=== PATIENT | male | born 1950 | race Two or more races ===

== ENCOUNTER 2017-11-25 18:32 | Observation (INO) | payer MEDICARE, OTHER ==
--- NOTE | 2017-11-25 18:55 | RADIOLOGY REPORT (SQ) ---
EXAM DESCRIPTION: CHEST SINGLE VIEW COMPLETED DATE/TIME: 11/25/2017 6:49 pm REASON FOR STUDY: stroke-like symptoms COMPARISON: None. EXAM PARAMETERS: NUMBER OF VIEWS: One view. TECHNIQUE: Single frontal radiographic view of the chest acquired. RADIATION DOSE: NA LIMITATIONS: None. FINDINGS: LUNGS AND PLEURA: No opacities, masses or pneumothorax. No pleural effusion. MEDIASTINUM AND HILAR STRUCTURES: No masses. Contour normal. HEART AND VASCULAR STRUCTURES: Heart normal in size. Normal vasculature. BONES: No acute findings. HARDWARE: None in the chest. OTHER: No other significant finding. IMPRESSION: NO ACUTE RADIOGRAPHIC FINDING IN THE CHEST. TECHNICAL DOCUMENTATION: JOB ID: [id number] [employer]- All Rights Reserved Reading location - IP/workstation name: [email or web address]
--- NOTE | 2017-11-25 18:55 | RADIOLOGY REPORT (SQ) ---
EXAM DESCRIPTION: CT HEAD WITHOUT COMPLETED DATE/TIME: 11/25/2017 6:45 pm REASON FOR STUDY: stroke-like symptoms COMPARISON: None. TECHNIQUE: Axial images acquired through the brain without intravenous contrast. Images reviewed wi th bone, brain and subdural windows. Additional sagittal and coronal reconstructions were generated. Images stored on PACS. All CT scanners at this facility use dose modulation, iterative reconstruction, and/or weight based d osing when appropriate to reduce radiation dose to as low as reasonably achievable (ALARA). [facility]: Dose Right [facility]: CareDose [facility]: Dose Right [facility]: Teradose 4D [facility]: [employer] RADIATION DOSE: CT Rad equipment meets quality standard of care and radiation dose reduction techniq ues were employed. CTDIvol: 53.2 mGy. DLP: 1044 mGy-cm. mGy. LIMITATIONS: None. FINDINGS: VENTRICLES: Normal size and contour. CEREBRUM: No masses. No hemorrhage. No midline shift. No evidence for acute infarction. Normal gra y/white matter differentiation. No areas of low density in the white matter. CEREBELLUM: There is an area of encephalomalacia in the left lobe of the cerebellum. EXTRAAXIAL SPACES: No fluid collections. No masses. ORBITS AND GLOBE: No intra- or extraconal masses. Normal contour of globe without masses. CALVARIUM: No fracture. PARANASAL SINUSES: No fluid or mucosal thickening. SOFT TISSUES: No mass or hematoma. OTHER: No other significant finding. IMPRESSION: No acute intracranial imaging findings. There is what appears to be an old left cerebel lar infarction. EVIDENCE OF ACUTE STROKE: NO. COMMENT: Quality ID # 436: Final reports with documentation of one or more dose reduction techniques (e.g., Automated exposure control, adjustment of the mA and/or kV according to patient size, use of iterative reconstruction technique) TECHNICAL DOCUMENTATION: JOB ID: [id number] [employer]- All Rights Reserved Reading location - IP/workstation name: [email or web address]
[2017-11-25] MEDS ORDERED: ONDANSETRON HCL INJ/PF 4 MG/2 ML SDV IV ONE (19:09)
[2017-11-25] MEDS ORDERED: ASPIRIN 325 MG TABLET PO ONE (19:09)
[2017-11-25] MEDS ORDERED: MECLIZINE HCL 25 MG TABLET PO ONE (19:09)
[2017-11-25 19:10] LABS: INTERNATIONAL RATION (INR) 0.92; PROTHROMBIN TIME 12.8 SEC (11.4-15.4)
[2017-11-25 19:11] LABS: PARTIAL THROMBOPLASTIN TIME 31.8 SEC (23.5-35.8)
[2017-11-25 19:13] LABS: ABSOLUTE BASOPHILS # (AUTO) 0.1 10^3/uL (0.0-0.2); ABSOLUTE EOSINOPHILS # (AUTO) 0.4 10^3/uL (0.0-0.6); ABSOLUTE MONOCYTES (AUTO) 0.9 10^3/uL (0.1-1.4); ABSOLUTE NEUT (AUTO) 6.5 10^3/uL (1.7-8.2); BASOPHILS % (AUTO) 0.7 % (0-2); EOSINOPHILS % (AUTO) 3.8 % (0-6); HEMATOCRIT 41.1 % (37.9-51.0); LYMPHOCYTES % (AUTO) 27.6 % (13-45); MEAN CORPUSCULAR HEMOGLOBIN 30.2 pg (27.0-33.4); MEAN CORPUSCULAR HGB CONC 34.1 g/dL (32.0-36.0); MEAN CORPUSCULAR VOLUME 89 fl (80-97); PLATELET COUNT 181 10^3/uL (150-450); RED BLOOD COUNT 4.64 10^6/uL (4.35-5.55); RED CELL DISTRIBUTION WIDTH 12.9 % (11.5-14.0); SEGMENTED NEUTROPHILS % (AUTO) 59.9 % (42-78); TOTAL CELLS COUNTED % (AUTO) 100 %; WHITE BLOOD COUNT 10.8 10^3/uL (4.0-10.5)
[2017-11-25 19:30] LABS: ALANINE AMINOTRANSFERASE 118 U/L (21-72); ALBUMIN 4.8 g/dL (3.5-5.0); ALKALINE PHOSPHATASE 89 U/L (38-126); ANION GAP 15 (5-19); ASPARTATE AMINO TRANSFERASE 84 U/L (17-59); BILIRUBIN,DIRECT 0.3 mg/dL (0.0-0.4); BILIRUBIN,TOTAL 0.4 mg/dL (0.2-1.3); BLOOD UREA NITROGEN 24 mg/dL (7-20); CALCIUM 10.2 mg/dL (8.4-10.2); CARBON DIOXIDE 26 mmol/L (22-30); CHLORIDE 104 mmol/L (98-107); CREATINE KINASE 127 U/L (55-170); GLUCOSE 162 mg/dL (75-110); SODIUM 145.2 mmol/L (137-145); TOTAL PROTEIN 7.8 g/dL (6.3-8.2)
--- NOTE | 2017-11-25 19:38 | RADIOLOGY REPORT (SQ) ---
EXAM DESCRIPTION: CTA HEAD COMPLETED DATE/TIME: 11/25/2017 7:27 pm REASON FOR STUDY: Sudden onset dizziness and vomiting, prior CVA COMPARISON: None. TECHNIQUE: Post IV contrast scanning, thin section axial imaging through the brain to evaluate the a rterial structures. Source and MIP images are saved and reviewed on PACS. Advanced 3D imaging as volume-rendering, MIPs, SSD performed? yes All CT scanners at this facility use dose modulation, iterative reconstruction, and/or weight based d osing when appropriate to reduce radiation dose to as low as reasonably achievable (ALARA). [facility]: Dose Right [facility]: CareDose [facility]: Dose Right [facility]: Teradose 4D [facility]: [employer] CONTRAST TYPE AND DOSE: contrast/concentration: Isovue 350.00 mg/ml; Total Contrast Delivered: 70.0 ml; Total Saline Delivered: 56.0 ml RENAL FUNCTION: Deferred by the emergency department LIMITATIONS: None. FINDINGS: [place]: The anterior, middle, posterior cerebral arteries are all patent. No ev idence of aneurysm or focal stenosis. POSTERIOR CIRCULATION: The distal vertebral arteries are patent as is the basilar artery. No aneurysm . BRAIN: No gross enhancing lesions as visualized. BONES: Intact as visualized. SINUSES: No fluid or mucosal thickening. OTHER: No other significant finding. IMPRESSION: NO CTA EVIDENCE OF STENOSIS OR ANEURYSM OF THE [place]. TECHNICAL DOCUMENTATION: JOB ID: [id number] Quality ID # [id number]: Final reports with documentation of one or more dose reduction techniques (e.g., Au tomated exposure control, adjustment of the mA and/or kV according to patient size, use of iterative reconstruction technique) 2010 [employer]- All Rights Reserved Reading location - IP/workstation name: [email or web address]
[2017-11-25 19:40] LABS: CREATINE KINASE MB 0.35 ng/mL (<4.55); TROPONIN I < 0.012 ng/mL
--- NOTE | 2017-11-25 19:42 | RADIOLOGY REPORT (SQ) ---
EXAM DESCRIPTION: CTA NECK COMPLETED DATE/TIME: 11/25/2017 7:27 pm REASON FOR STUDY: Sudden onset dizziness and vomiting, prior CVA COMPARISON: None. TECHNIQUE: Axial dynamic scanning technique with dynamic contrast enhancement through the extra-aircraft inspection record clerk nial carotid and vertebral arteries. Multiplanar reconstruction. 3-D MIPS and Volume-rendered imag es acquired at the workstation and saved to PACS. Images are reviewed in soft tissue, bone, lung w indows. All CT scanners at this facility use dose modulation, iterative reconstruction, and/or weight based d osing when appropriate to reduce radiation dose to as low as reasonably achievable (ALARA). [facility]: Dose Right [facility]: CareDose [facility]: Dose Right [facility]: Teradose 4D [facility]: [employer] CONTRAST TYPE AND DOSE: 70.3 Omnipaque 350- low osmolar. RENAL FUNCTION: Defewrred by the emergency department LIMITATIONS: None. FINDINGS: AORTIC ARCH: Normal three-vessel origin. Bilateral subclavian arteries are patent. No d issection. RIGHT CAROTIDS: Patent common, internal and external carotid arteries without suggestion of significa nt stenosis or irregular plaque. No dissection. RIGHT VERTEBRAL: Dominant. No dissection. LEFT CAROTIDS: Patent common, internal and external carotid arteries without suggestion of significan t stenosis or irregular plaque. Mild calcified plaque. No dissection. LEFT VERTEBRAL: Hypoplastic left vertebral. Patent. OTHER: No other significant finding. OTHER: 3-D reconstructions confirm findings. IMPRESSION: NORMAL CTA OF THE EXTRA-CRANIAL CAROTID AND VERTEBRAL ARTERIES. COMMENT: Quality ID #[id number]: Measurements of distal internal carotid diameter were used as the denomina tor for stenosis measurement. TECHNICAL DOCUMENTATION: JOB ID: [id number] Quality ID # [id number]: Final reports with documentation of one or more dose reduction techniques (e.g., Au tomated exposure control, adjustment of the mA and/or kV according to patient size, use of iterative reconstruction technique) 2010 [id number]- All Rights Reserved Reading location - IP/workstation name: [email or web address]
--- NOTE | 2017-11-25 20:13 | ER Document Report ---
ED General - General Chief Complaint: S/S of Possible Stroke Stated Complaint: DIZZINESS,BLOOD PRESSURE ISSUES Time Seen by Provider: 11/25/17 19:00 TRAVEL OUTSIDE OF THE [place] IN LAST 30 DAYS: No - HPI Notes: 67-year-old male with a history of stroke, diabetes, hypertension, high cholesterol presents with sudden onset of dizziness and 2 episodes of vomiting around 4 PM. He was at work seeing patients whenever it occurred. He states he also felt off balance like he was on a ship. He states this is similar to the symptoms he had when he had a cerebellar stroke 10 years ago. He is not on aspirin or Plavix. He has been noncompliant with his diabetes and cholesterol medications. He has not eaten anything all day today and has been putting in long hours at work for the past several days. He denies any headache. No focal weakness or numbness. Patient was brought in as a stroke alert. - Related Data Allergies/Adverse Reactions: No Known Allergies Allergy (Verified 11/25/17 18:58) Past Medical History - Social History Smoking Status: Unknown if Ever Smoked Family History: Reviewed & Not Pertinent Patient has suicidal ideation: No Patient has homicidal ideation: No - Past Medical History Cardiac Medical History: Reports: Hx Hypertension Endocrine Medical History: Reports: Hx Diabetes Mellitus Type 2 Renal/ Medical History: Denies: Hx Peritoneal Dialysis Past Surgical History: Reports: Hx Appendectomy, Hx Tonsillectomy Review of Systems - Review of Systems Notes: Constitutional: Negative for fever. HENT: Negative for sore throat. Eyes: Negative for visual changes. Cardiovascular: Negative for chest pain. Respiratory: Negative for shortness of breath. Gastrointestinal: Negative for abdominal pain, or diarrhea. Positive for nausea and vomiting Genitourinary: Negative for dysuria. Musculoskeletal: Negative for back pain. Skin: Negative for rash. Neurological: Negative for headaches, weakness or numbness. Positive for dizziness and ataxia 10 point ROS negative except as marked above and in HPI. Physical Exam - Vital signs Vitals: Pulse Ox 98 11/25/17 18:55 - Notes Notes: PHYSICAL EXAMINATION: GENERAL: Well-appearing, well-nourished and in no acute distress. HEAD: Atraumatic, normocephalic. EYES: Pupils equal round and reactive to light, extraocular movements intact, conjunctiva are normal. ENT: nares patent, oropharynx clear without exudates. Moist mucous membranes. NECK: Normal range of motion, supple without lymphadenopathy LUNGS: Breath sounds clear to auscultation bilaterally and equal. No wheezes rales or rhonchi. HEART: Regular rate and rhythm, no chest wall tenderness ABDOMEN: Soft, nontender, normoactive bowel sounds. No guarding, no rebound. No masses appreciated. EXTREMITIES: Normal range of motion, no pitting or edema. No cyanosis. NEUROLOGICAL: Cranial nerves grossly intact. Normal speech, normal gait. Normal sensory and motor exams. Normal finger to nose, rapid alternating movements, and [id number]. No nystagmus. Dizziness worsens with position change. PSYCH: Normal mood, normal affect. SKIN: Warm, Dry, normal turgor, no rashes or lesions noted. Course - Re-evaluation Re-evalutation: 11/25/17 20:12 Patient called a stroke alert. Initial CT head negative. Discussed TPA. Patient concerned due to prior cerebellar stroke that symptoms could be consistent with new stroke. Patient has no ataxia with walking, no nystagmus, and normal finger to nose, rapid alternating movements, and [id number]. CTA head and neck unremarkable. Using shared decision making with patient, decided against TPA due to rapid improvement and minimal deficit and possible alternate explanation for symptoms. NIH stroke scale 0. Discussed with hospitalist for admission. - Vital Signs Vital signs: Temp Pulse Resp BP Pulse Ox 59 L 20 149/80 H 96 11/25/17 19:26 11/25/17 19:26 11/25/17 19:26 11/25/17 19:26 - Laboratory Result Diagrams: 11/25/17 18:55 11/25/17 18:55 Laboratory results interpreted by me: 11/25/17 11/25/17 11/25/17 18:55 18:55 19:32 WBC 10.8 H Sodium 145.2 H BUN 24 H Creatinine 1.29 H Est GFR (Non-Af Amer) 56 L Glucose 162 H POC Glucose 161 H AST 84 H ALT 118 H Critical Care Note - Critical Care Note Total time excluding time spent on procedures (mins): 45 - Critical care time spent obtaining history from patient or surrogate, discussions with consultants , development of treatment plan with patient or surrogate, evaluation of patient 's response to treatment, examination of patient, ordering and performing treatments and interventions, ordering and review of laboratory studies, re- evaluation of patient's condition, ordering and review of radiographic studies and review of old charts Discharge - Discharge Condition: Fair Disposition: ADMITTED OBSERVATION Admitting Provider: Hospitalist Unit Admitted: [facility]
[2017-11-25] MEDS ORDERED: INSULIN LISPRO 100 UNIT/ML 3 ML VIAL SUBCUT PRN (21:55)
[2017-11-25] MEDS ORDERED: DEXTROSE 50%-WATER 25 GM/50 ML DISP.SYRIN IV PRN ×2 (21:55)
[2017-11-25] MEDS ORDERED: DOCUSATE SODIUM 100 MG CAPSULE PO PRN (21:55)
[2017-11-25] MEDS ORDERED: DEXTROSE 40% GEL 15 GM TUBE PO PRN ×2 (21:55)
[2017-11-25] MEDS ORDERED: GLUCAGON,HUMAN RECOMB 1 MG INJ IM PRN (21:55)
[2017-11-25] MEDS ORDERED: ATORVASTATIN CALCIUM 80 MG TABLET PO ONE (22:15)
[2017-11-25] MEDS ORDERED: HEPARIN SOD (PORCINE) 5,000 UNIT/ML 1 ML SYRINGE SUBCUT ONE (22:15)
--- NOTE | 2017-11-25 22:32 | RADIOLOGY REPORT (SQ) ---
EXAM DESCRIPTION: MRI HEAD WITHOUT COMPLETED DATE/TIME: 11/25/2017 9:43 pm REASON FOR STUDY: dizzy COMPARISON: None. TECHNIQUE: Multiplanar imaging includes non-contrasted T1, T2, FLAIR, and Diffusion with ADC map seq uences. Heme avid sequence. Images stored on PACS. LIMITATIONS: None. FINDINGS: ANATOMY: No anomalies. Normal vascular flow voids. Pituitary fossa normal. CSF SPACES: Normal in size and contour. No hemorrhage. CEREBRUM: A few high-signal intensity lesions scattered throughout the white matter on FLAIR imaging with distribution suggesting chronic micro-vascular ischemic change. Sulci and gyri normal in size a nd contour. No evidence of hemorrhage, mass or extraaxial fluid collection. POSTERIOR FOSSA: Old left hemispheric infarct. . No hemorrhage. No edema, masses or mass effect. In ternal auditory canals, cerebello-pontine angles, mastoids normal. DIFFUSION: Negative for acute or sub-acute infarction. ORBITS: No masses. Globes normal. PARANASAL SINUSES: No fluid levels. Mucosa normal. OTHER: No other significant finding. IMPRESSION: Old left cerebellar hemispheric infarct. Mild microvascular ischemic change. No acute findings. EVIDENCE OF ACUTE STROKE: NO. TECHNICAL DOCUMENTATION: JOB ID: [id number] [employer]- All Rights Reserved Reading location - IP/workstation name: [email or web address]
--- NOTE | 2017-11-26 04:30 | PDOC H&P ---
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 He presents with 2 hours of dizziness, abdominal pain and nausea resulting in vomiting 2 of gastric content. He admits previous episode with remote cerebellar CVA but denies palpitations, ataxia, headache, blurred vision, focal weakness, confusion. In the emergency room he has an unremarkable workup with a stroke scale of 1 and use of TPA is rejected. He denies recent change in medications, admits recent symptoms of enteritis, exceptional work stress and tobacco. He is at baseline and referred to the hospitalist for observation. Past Medical History Cardiac Medical History: Reports: Hypertension Neurological Medical History: Reports: Ischemic CVA Endocrine Medical History: Reports: Diabetes Mellitus Type 2 Psychiatric Medical History: Reports: Tobacco Dependency Past Surgical History Past Surgical History: Reports: Appendectomy, Tonsillectomy Social History Information Source: Patient Smoking Status: Current Every Day Smoker Frequency of Alcohol Use: Rare Drugs: None - Advance Directive Resuscitation Status: Full Code Family History Family History: Hypertension Parental Family History Reviewed: Yes Children Family History Reviewed: Yes Sibling(s) Family History Reviewed.: Yes Medication/Allergy Allergies/Adverse Reactions: No Known Allergies Allergy (Verified 11/25/17 18:58) Review of Systems Constitutional: ABSENT: chills, fever(s), headache(s), weight gain, weight loss Eyes: ABSENT: visual disturbances Ears: ABSENT: hearing changes Cardiovascular: ABSENT: chest pain, dyspnea on exertion, edema, orthropnea, palpitations Respiratory: ABSENT: cough, hemoptysis Gastrointestinal: ABSENT: abdominal pain, constipation, diarrhea, hematemesis, hematochezia, nausea, vomiting Genitourinary: ABSENT: dysuria, hematuria Musculoskeletal: ABSENT: joint swelling Integumentary: ABSENT: rash, wounds Neurological: ABSENT: abnormal gait, abnormal speech, confusion, dizziness, focal weakness, syncope Psychiatric: ABSENT: anxiety, depression, homidical ideation, suicidal ideation Endocrine: ABSENT: cold intolerance, heat intolerance, polydipsia, polyuria Hematologic/Lymphatic: ABSENT: easy bleeding, easy bruising Physical Exam Vital Signs: Temp Pulse Resp BP Pulse Ox 65 16 149/80 H 97 11/25/17 21:00 11/25/17 21:00 11/25/17 21:00 11/25/17 21:00 General appearance: PRESENT: no acute distress, well-developed, well-nourished Head exam: PRESENT: atraumatic, normocephalic Eye exam: PRESENT: conjunctiva pink, EOMI, PERRLA. ABSENT: scleral icterus Ear exam: PRESENT: normal external ear exam Mouth exam: PRESENT: moist, tongue midline Neck exam: ABSENT: carotid bruit, JVD, lymphadenopathy, thyromegaly Respiratory exam: PRESENT: clear to auscultation concepcion. ABSENT: rales, rhonchi, wheezes Cardiovascular exam: PRESENT: RRR. ABSENT: diastolic murmur, rubs, systolic murmur Pulses: PRESENT: normal dorsalis pedis pul Vascular exam: PRESENT: normal capillary refill GI/Abdominal exam: PRESENT: normal bowel sounds, soft. ABSENT: distended, guarding, mass, organolmegaly, rebound, tenderness Rectal exam: PRESENT: deferred Extremities exam: PRESENT: full ROM. ABSENT: calf tenderness, clubbing, pedal edema Neurological exam: PRESENT: alert, awake, oriented to person, oriented to place , oriented to time, oriented to situation, CN II-XII grossly intact. ABSENT: motor sensory deficit Psychiatric exam: PRESENT: appropriate affect, normal mood. ABSENT: homicidal ideation, suicidal ideation Skin exam: PRESENT: dry, intact, warm. ABSENT: cyanosis, rash Results Impressions: Chest X-Ray 11/25/17 18:37 IMPRESSION: NO ACUTE RADIOGRAPHIC FINDING IN THE CHEST. Head CT 11/25/17 18:37 IMPRESSION: No acute intracranial imaging findings. There is what appears to be an old left cerebellar infarction. EVIDENCE OF ACUTE STROKE: NO. Head CTA 11/25/17 19:09 IMPRESSION: NO CTA EVIDENCE OF STENOSIS OR ANEURYSM OF THE [place]. Neck CTA 11/25/17 19:09 IMPRESSION: NORMAL CTA OF THE EXTRA-CRANIAL CAROTID AND VERTEBRAL ARTERIES. Head MRI 11/25/17 20:05 IMPRESSION: Old left cerebellar hemispheric infarct. Mild microvascular ischemic change. No acute findings. EVIDENCE OF ACUTE STROKE: NO. Assessment & Plan - Diagnosis (1) TIA (transient ischemic attack) Is this a current diagnosis for this admission?: Yes Plan: CVA care set, aspirin, Lipitor, permissive hypertension, follow-up carotid Doppler and MRI, education for risk reduction (2) Tobacco abuse Is this a current diagnosis for this admission?: Yes Plan: Tobacco Dependence patient received tobacco cessation counseling and offered nicotine replacement options (3) Diabetes Is this a current diagnosis for this admission?: Yes Plan: Outpatient regiment with Humalog sliding scale, evaluate A1c (4) Dyslipidemia Is this a current diagnosis for this admission?: Yes Plan: Follow-up lipid profile, Lipitor initiated empirically (5) Hypertension Qualifiers: Hypertension type: essential hypertension Qualified Code(s): I10 - Essential (primary) hypertension Is this a current diagnosis for this admission?: Yes Plan: Permissive hypertension, consider increased IVON inhibitor (6) Chronic kidney disease Is this a current diagnosis for this admission?: Yes Plan: Likely secondary to hypertension and diabetes, optimize IVON inhibitor - Time Time Spent: 50 to 70 Minutes - Inpatient Certification Medical Necessity: Need Close Monitoring Due to Risk of Patient Decompensation
[2017-11-26] MEDS ORDERED: HEPARIN SOD (PORCINE) 5,000 UNIT/ML 1 ML SYRINGE SUBCUT SCH (06:00)
[2017-11-26 07:20] LABS: CHOLESTEROL 204.41 mg/dL (0-200); TRIGLYCERIDES 289 mg/dL (<150)
[2017-11-26 07:31] LABS: DIRECT LDL 114 mg/dL (<100)
[2017-11-26 07:38] LABS: VLDL CHOLESTEROL 57.8 mg/dL (10-31)
--- NOTE | 2017-11-26 07:39 | EKG REPORT ---
SEVERITY:- OTHERWISE NORMAL ECG - SINUS RHYTHM LEFT AXIS DEVIATION NONSPECIFIC ST-T LATERAL CHANGES : Confirmed by: Lonny Becerra MD 26-Nov-2017 07:38:59
[2017-11-26] MEDS ORDERED: ASPIRIN 325 MG TABLET, ENT COATED PO SCH (10:00)
[2017-11-26 12:19] LABS: ANION GAP 11 (5-19); BLOOD UREA NITROGEN 24 mg/dL (7-20); CALCIUM 9.1 mg/dL (8.4-10.2); CARBON DIOXIDE 26 mmol/L (22-30); CHLORIDE 105 mmol/L (98-107); GLUCOSE 122 mg/dL (75-110); SODIUM 141.5 mmol/L (137-145)
--- NOTE | 2017-11-26 15:00 | RADIOLOGY REPORT (SQ) ---
EXAM DESCRIPTION: CAROTID DOPPLER COMPLETED DATE/TIME: 11/26/2017 1:33 pm REASON FOR STUDY: tia E10.65 TYPE 1 DIABETES MELLITUS WITH HYPERGLYCEMIA G45.9 TRANSIENT CEREBRAL ISCHEMIC ATTACK, UNSPECIFIED E03.9 HYPOTHYROIDISM, UNSPECIFIED COMPARISON: CT brain 11/25/2017 CT angio neck and [place] of [place] 11/25/2017 MRI brain 11/25/2017 TECHNIQUE: Grayscale ultrasound, Doppler velocity and spectra, and color Doppler images acquired of the extra-cranial carotid and vertebral arteries. Images stored on PACS. LIMITATIONS: None. FINDINGS: RIGHT CAROTID CCA Velocities: Within normal limits. ICA Velocities Peak systolic 0.92 m/s. End diastolic 0.24 m/s. Proximal ICA/CCA peak systolic ratio normal. Spectra normal. No significant plaque. LEFT CAROTID CCA Velocities: Within normal limits. ICA Velocities Peak systolic 0.71 m/s. End diastolic 0.12 m/s. Proximal ICA/CCA peak systolic ratio normal. Spectra normal. No significant plaque. VERTEBRAL ARTERIES: Antegrade flow. Normal waveforms. SUBCLAVIAN ARTERIES: Not evaluated OTHER: No other significant finding. IMPRESSION: No hemodynamically significant stenosis of the carotid bifurcations. Antegrade pulsatile vertebral artery flow is seen bilaterally. COMMENT: Quality ID #[id number]: Velocity criteria are extrapolated from the diameter data as defined by t he Society of Radiologists in Ultrasound Consensus Conference. Radiology 2003: 229; 340-346. TECHNICAL DOCUMENTATION: JOB ID: [id number] [employer]- All Rights Reserved Reading location - IP/workstation name: [email or web address]
[2017-11-26 15:18] VITALS: BP 117/67
[2017-11-26] MEDS ORDERED: ATORVASTATIN CALCIUM 80 MG TABLET PO SCH (22:00)
--- NOTE | 2017-11-28 16:48 | PDOC DISCHARGE SUMMARY ---
General - Admit/Disc Date/PCP Admission Date/Primary Care Provider: 11/25/17 21:02 Discharge Date: 11/26/17 - Discharge Diagnosis (1) TIA (transient ischemic attack) Is this a current diagnosis for this admission?: Yes Summary: The patient's symptoms rapidly resolved and he has returned to his baseline function. Head CT, Head/Neck CTA and MRI are were initially reported as benign. Images were re-reviewed by the radiologist after obtaining Carotid Doppler. Dr. 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 The patient's test results were reviewed; he is advised to follow-up with cardiology and neurology. The patient was provided prescriptions for aspirin and 21 days of Plavix; he was encouraged to discuss whether or not continued Plavix is indicated in his particular case at his follow-up appointment. At time of discharge, the patient was in stable condition, all symptoms had resolved and he had returned to his baseline function. The patient's hospital benefit had been maximized and thus he was discharged home with recommendations for close follow-up. (2) Chronic kidney disease Is this a current diagnosis for this admission?: Yes (3) Diabetes Is this a current diagnosis for this admission?: Yes Summary: Hemoglobin A1c elevated to 8.4%. Lifestyle and dietary modifications were discussed. The patient was provided a prescription for increased dose of metformin; 850 mg twice daily. (4) Dyslipidemia Is this a current diagnosis for this admission?: Yes Summary: Lipid panel was obtained with a.m. labs; HDL 27, LDL 114, triglycerides 289, TChol 204. He was encouraged to adopt a cardiac diet. He was provided atorvastatin 80 mg nightly #30 for the first month followed by 20 mg nightly thereafter. Encourage the patient to discuss additional cholesterol management with his primary care provider at follow-up. (5) Hypertension Is this a current diagnosis for this admission?: Yes Summary: The patient was noted to have blood pressures as high as 163/78 upon admission, which improved over the course of his stay. At time of discharge he was normotensive. He was advised to continue his home dose medication. Begin monitoring his blood pressure daily at home; keep a log, and discussed his blood pressure trends with his primary care provider at follow-up in 1 week. (6) Tobacco abuse Is this a current diagnosis for this admission?: Yes Summary: Smoking cessation was encouraged; the patient was provided a prescription for NicoDerm patches. (7) Dizziness Is this a current diagnosis for this admission?: Yes Summary: Resolved; secondary to #1. - Additional Information Resuscitation Status: Full Code Discharge Diet: Cardiac, Diabetic Discharge Activity: Activity As Tolerated, Balance Activity w/Rest Prescriptions: Aspirin [Ecotrin 81 mg EC Tablet] 81 mg PO DAILY #1 pkg Atorvastatin Calcium 20 mg PO QHS #30 tablet Atorvastatin Calcium [Lipitor 80 mg Tablet] 80 mg PO QHS #30 tablet Clopidogrel Bisulfate [Plavix 75 mg Tablet] 75 mg PO DAILY #30 tablet Metformin HCl [Glucophage] 850 mg PO BIDACBS #60 tablet Nicotine [Nicoderm 14 mg/24 Hr Transdermal Patch] 1 patch TD DAILY #30 patch.[email or web address] Home Medications: Aspirin [Ecotrin 81 mg EC Tablet] 81 mg PO DAILY #1 pkg 11/26/17 Atorvastatin Calcium 20 mg PO QHS #30 tablet 11/26/17 Atorvastatin Calcium [Lipitor 80 mg Tablet] 80 mg PO QHS #30 tablet 11/26/17 Clopidogrel Bisulfate [Plavix 75 mg Tablet] 75 mg PO DAILY #30 tablet 11/26/17 Lisinopril/Hydrochlorothiazide [Zestoretic 20-12.5 mg Tablet] 1 tab PO DAILY Metformin HCl [Glucophage] 850 mg PO BIDACBS #60 tablet 11/26/17 Nicotine [Nicoderm 14 mg/24 Hr Transdermal Patch] 1 patch TD DAILY #30 patch.[email or web address] 11/26/17 History of Present Illness History of Present Illness: Per H&P by Dr. 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 He presents with 2 hours of dizziness, abdominal pain and nausea resulting in vomiting 2 of gastric content. He admits previous episode with remote cerebellar CVA but denies palpitations, ataxia, headache, blurred vision, focal weakness, confusion. In the emergency room he has an unremarkable workup with a stroke scale of 1 and use of TPA is rejected. He denies recent change in medications, admits recent symptoms of enteritis, exceptional work stress and tobacco. He is at baseline and referred to the hospitalist for observation. Physical Exam Vital Signs: Temp Pulse Resp BP Pulse Ox 98.4 F 60 16 117/67 92 11/26/17 15:18 11/26/17 12:08 11/26/17 15:16 11/26/17 15:16 11/26/17 15:16 General appearance: PRESENT: no acute distress, cooperative, well-developed, well-nourished Head exam: PRESENT: atraumatic, normocephalic Eye exam: PRESENT: conjunctiva pink, EOMI, PERRLA. ABSENT: scleral icterus Ear exam: PRESENT: normal external ear exam Mouth exam: PRESENT: moist, tongue midline Neck exam: ABSENT: carotid bruit, JVD, lymphadenopathy, thyromegaly Respiratory exam: PRESENT: clear to auscultation concepcion. ABSENT: rales, rhonchi, wheezes Cardiovascular exam: PRESENT: RRR. ABSENT: diastolic murmur, rubs, systolic murmur Pulses: PRESENT: normal dorsalis pedis pul Vascular exam: PRESENT: normal capillary refill GI/Abdominal exam: PRESENT: normal bowel sounds, soft. ABSENT: distended, guarding, mass, organolmegaly, rebound, tenderness Rectal exam: PRESENT: deferred Extremities exam: PRESENT: full ROM. ABSENT: calf tenderness, clubbing, pedal edema Neurological exam: PRESENT: alert, awake, oriented to person, oriented to place , oriented to time, oriented to situation, CN II-XII grossly intact. ABSENT: motor sensory deficit Psychiatric exam: PRESENT: appropriate affect, normal mood. ABSENT: homicidal ideation, suicidal ideation Skin exam: PRESENT: dry, intact, warm. ABSENT: cyanosis, rash Results Laboratory Results: 11/26/17 06:28 Impressions: Chest X-Ray 11/25/17 18:37 IMPRESSION: NO ACUTE RADIOGRAPHIC FINDING IN THE CHEST. Head CT 11/25/17 18:37 IMPRESSION: No acute intracranial imaging findings. There is what appears to be an old left cerebellar infarction. EVIDENCE OF ACUTE STROKE: NO. Head CTA 11/25/17 19:09 IMPRESSION: NO CTA EVIDENCE OF STENOSIS OR ANEURYSM OF THE TABLE [place] OF [place]. Neck CTA 11/25/17 19:09 IMPRESSION: NORMAL CTA OF THE EXTRA-CRANIAL CAROTID AND VERTEBRAL ARTERIES. Head MRI 11/25/17 20:05 IMPRESSION: Old left cerebellar hemispheric infarct. Mild microvascular ischemic change. No acute findings. EVIDENCE OF ACUTE STROKE: NO. Carotid Doppler Study 11/26/17 00:00 IMPRESSION: No hemodynamically significant stenosis of the carotid bifurcations. Antegrade pulsatile vertebral artery flow is seen bilaterally. Qualifiers - * PATIENT BEING DISCHARGED WITH ANY OF THE FOLLOWING DIAGNOSIS: Stroke Stroke Pt being discharged on Anti-thrombolytic therapy?: Yes Stroke Pt being discharged on Anti-coagulation therapy?: No Reason(s) for not prescribing Anti-coagulation therapy:: Not indicated Stroke Pt being discharged on Statins?: Yes Plan Discharge Plan: Discharge to home with self-care. Follow-up with primary care provider within 1 week. Recommend follow-up with cardiology within 1-2 weeks for event monitor and echocardiogram. Consider neurology follow-up. Time Spent: Less than 30 Minutes
== END 2017-11-26 15:46 | disposition home or self-care (01) ==
LOC: ER 18:32 → EH 21:02
PROVIDERS: ADMIT Internal Medicine; ATTEND Internal Medicine
DX: G45.9 Transient cerebral ischemic attack, unspecified (principal); I77.74 Dissection of vertebral artery; E11.22 Type 2 diabetes mellitus with diabetic chronic kidney disease; I12.9 Hypertensive chronic kidney disease with stage 1 through stage 4 chronic kidney disease, or unspecified chronic kidney disease; N18.9 Chronic kidney disease, unspecified; E78.5 Hyperlipidemia, unspecified; F17.200 Nicotine dependence, unspecified, uncomplicated; R11.2 Nausea with vomiting, unspecified; R10.9 Unspecified abdominal pain; Z79.84 Long term (current) use of oral hypoglycemic drugs; Z86.73 Personal history of transient ischemic attack (TIA), and cerebral infarction without residual deficits; Z90.49 Acquired absence of other specified parts of digestive tract; Z82.49 Family history of ischemic heart disease and other diseases of the circulatory system
CPT/HCPCS: 93005; 99285; 96372; 96374; 36415 ×2; 84439; 82553; 82962 ×2; 82550; 84443; 85025; 85610; 85730; 80048; 80053; 84484; 83036; 80061; 93880; 70551; 71045; 70450; 70496; 70498; 93010; G0378; A9270 ×4; J1644; J3490; J2405